=== PATIENT | male | born 1960 | race Caucasian/White ===

== ENCOUNTER → 2017-09-09 08:15 | Outpatient (CLI) | payer MEDICARE, OTHER, SELFPAY ==
--- NOTE | 2017-09-09 08:20 | XR_ITS ---
XR shoulder LT min 2V HISTORY: Follow-up fracture ITS.REASON: FOLLOW UP ORDERING PHYSICIAN: Ugo Fine MD PATIENT AGE: 57 years Comparison: 08/13/2017 FINDINGS: Avulsion fractures present involving the greater tuberosity of the humeral head. Fracture line is more prominent on today's exam may be related to hyperemic changes from early healing. IMPRESSION: Nondisplaced avulsion fracture of the humeral head with good alignment
--- NOTE | 2017-09-09 08:31 | XR_ITS ---
XR wrist RT min 3V HISTORY follow-up fracture ITS.REASON: follow up OUT OF CAST ORDERING PHYSICIAN: Ugo Fine MD PATIENT AGE: 57 years Comparison: 08/13/2017 FINDINGS: Longitudinal nondisplaced intra-articular fracture of the distal radius once again noted overall not significantly changed. There remains good alignment. Fracture line is somewhat more prominent but could be due to hyperemia from a healing. IMPRESSION: Good alignment of the nondisplaced longitudinal fracture of the distal radius with intra-articular involvement
== END ==
PROVIDERS: PCP Family Medicine; Visit Provider Orthopaedic Surgery
DX: S42.252A Displaced fracture of greater tuberosity of left humerus, initial encounter for closed fracture (principal); S62.109A Fracture of unspecified carpal bone, unspecified wrist, initial encounter for closed fracture
CPT/HCPCS: 73030; 73110

== ENCOUNTER 2017-09-09 10:04 | Outpatient (RCR) | payer MEDICARE, OTHER, SELFPAY | END 2017-09-09 11:30 | disposition home or self-care (01) | LOC: OT 10:04 | PROVIDERS: Family Provider Family Medicine; PCP Family Medicine; Visit Provider Orthopaedic Surgery | DX: S62.101A Fracture of unspecified carpal bone, right wrist, initial encounter for closed fracture (principal) | CPT/HCPCS: 97760 ==

== ENCOUNTER → 2017-10-01 08:07 | Outpatient (CLI) | payer MEDICARE, OTHER, SELFPAY ==
--- NOTE | 2017-10-01 08:16 | XR_ITS ---
XR shoulder LT min 2V HISTORY: ITS.REASON: follow up fracture ORDERING PHYSICIAN: Ugo Fine MD PATIENT AGE: 57 years Comparison: 09/09/2017 FINDINGS: Avulsion fracture of the greater tuberosity once again noted. The fracture line is less apparent and there is some mild callus formation noted laterally. Good alignment of the fracture fragments. IMPRESSION: Healing nondisplaced avulsion fracture of the greater tuberosity
--- NOTE | 2017-10-01 08:16 | XR_ITS ---
XR wrist RT min 3V HISTORY ITS.REASON: follow up wrist fracture ORDERING PHYSICIAN: Ugo Fine MD PATIENT AGE: 57 years Comparison: 09/09/2017 FINDINGS: Longitudinal fracture of the distal radius with intra-articular involvement once again noted. Fracture is nondisplaced. The fracture line is somewhat less apparent than when compared to the previous exam. There is good alignment. IMPRESSION: Good alignment nondisplaced longitudinal fracture distal radius with fracture line somewhat less apparent suggesting early healing
== END ==
PROVIDERS: PCP Family Medicine; Visit Provider Orthopaedic Surgery
DX: S42.252A Displaced fracture of greater tuberosity of left humerus, initial encounter for closed fracture (principal); S52.501A Unspecified fracture of the lower end of right radius, initial encounter for closed fracture
CPT/HCPCS: 73030; 73110

== ENCOUNTER → 2019-10-10 10:25 | Outpatient (CLI) | payer MEDICARE, OTHER, SELFPAY ==
--- NOTE | 2019-10-10 11:34 | XR_ITS ---
PROCEDURE: XR KNEE RT 3V CLINICAL INDICATION: RT KNEE PAIN COMPARISON: No exams were available for comparison FINDINGS: No fracture or dislocation. No lytic or blastic change. There is normal mineralization. Moderate osteoarthritic changes are present at the medial compartment and patellofemoral joint with mild osteoarthritis laterally. Knee joint effusion is present Other findings:None. IMPRESSION: Moderate osteoarthritic changes with knee joint effusion Dictated by: Jaison Harris MD 10/10/2019 12:19 Electronically signed by Jaison Harris MD in [place] 10/10/2019 12:19
== END ==
PROVIDERS: PCP Nurse Practitioner Family; Visit Provider Nurse Practitioner Family
DX: M25.561 Pain in right knee (principal); M25.461 Effusion, right knee
CPT/HCPCS: 73562

== ENCOUNTER 2020-08-04 12:22 | Emergency (ER) | payer MEDICARE, OTHER, SELFPAY ==
[2020-08-04 12:23] VITALS: BP 178/99; PULSE 66; RESP 18; TEMP 36.9; O2SAT 98; BMI 48.6
--- NOTE | 2020-08-04 12:55 | HMH.EDUROGM ---
ED Disposition Clinical Impression: Dysuria Disposition: Home, Self-Care Condition on Discharge: Good Instructions: DI for Urinary Tract Infection (UTI), DI for Urinary Tract Infection in Children Prescriptions: Phenazopyridine HCl 100 mg PO Q8H PRN #10 tab PRN Reason: Dysuria Transmission Status: Pending to [facility] #[id number] Referrals: PCP,No [Non-Staff] - - Critical Care Critical Care Time: No Attestation: On 08/04/20, the high probability of a clinically significant, sudden or life threatening deterioration of the following system(s) required my full and direct attention, intervention and personal management. The time I documented below is in addition to time spent performing reported procedures but includes the following listed in this critical care notation. Medical Decision Making - Medical Records Medical records reviewed: Yes: I reviewed the patient's medical records. - Norberto Inquiry Pt receiving controlled substance: No Vital Signs: 08/04/20 12:23 Temperature 98.5 F Temperature Source Oral Pulse Rate [Right Radial] 66 Respiratory Rate 18 Blood Pressure [Right Arm] 178/99 H Blood Pressure Mean [Right Arm] 125 Blood Pressure Source [Right Arm] Automatic Cuff Blood Pressure Position [Right Arm] Sitting 02 Sat by Pulse Oximetry 98 Oxygen Delivery Method Room Air - Lab Data Lab results reviewed: Yes: I reviewed the patient's lab results. Lab Results 08/04/20 12:50: Urine Color Yellow, Urine Appearance Clear, Urine pH 6.0, Ur Specific [place] 1.015, Urine Protein Negative, Urine Glucose (UA) Negative, Urine Ketones Negative, Urine Blood Negative, Urine Nitrate Negative, Urine Bilirubin Negative, Urine Urobilinogen 0.2, Ur Leukocyte Esterase Negative, Urine RBC None, Urine WBC None, Ur Squamous Epith Cells Occasional, Urine Bacteria None Male Urogenital HPI - General Chief complaint: Urogenital-Male Stated complaint: pain with urination Time Seen by Provider: 08/04/20 12:30 Mode of Arrival: EMS Limitations: No Limitations Description of Symptoms (Recalled from ER Triage Doc. by RN): Pt reports burning with urination and pain in testicle area since this morning. - History of Present Illness HPI Narrative: This is a 60-year-old male that presents with 1 week of dysuria/suprapubic pain. Pain is moderate in intensity and persistent. Patient does endorse some burning with urination. Nothing exacerbates or alleviates his symptoms. No fever or chills. No nausea vomiting or diarrhea or upper abdominal pain. - Related Data Home Medications Medication Instructions Recorded Confirmed Atorvastatin Calcium [Atorvastatin 40 mg PO DAILY 08/13/17 08/13/17 40mg Tab] Meloxicam [Mobic] 15 mg PO DAILY 08/13/17 08/13/17 aspirin 81 mg chewable tablet 81 mg PO ONCE 08/18/17 ibuprofen 800 mg tablet 800 mg PO TID 08/18/17 Previous Rx's Medication Instructions Recorded Phenazopyridine HCl 100 mg PO Q8H PRN #10 tab 08/04/20 Allergies Allergy/AdvReac Type Severity Reaction Status Date / Time INGREDIENT: NO KNOWN - NO Allergy Unknown Uncoded 08/18/17 13:17 KNOWN DRUG ALLERGY [facility] History - Hepatitis A Screen Drug use history?: No High risk sexual behaviors?: No History of sexually transmitted infection?: No Currently employed?: No Childcare worker?: No Do you have indoor plumbing?: Yes Do you have electricity?: Yes Attestation statement:: This patient has been screened for Hepatitis A risk factors. I have reviewed the patient's past medical history: Yes Laterality Cases: Bilateral: Other - Social History Smoking Status: Never smoker Alcohol Intake: never Family Hx:: No significant family history ROS Obtained: Yes All systems reviewed & no additional complaints Physical Exam - General General appearance: alert, in no apparent distress - Head Head exam: atraumatic - Eye Eye exam: Present: normal appearance, PERRL - ENT ENT e
[2020-08-04 12:57] LABS: Microscopic, Urine URINE MICROSCOPIC (MICROSCOPIC)
[2020-08-04 12:58] LABS: Appearance,Urine CLEAR (Clear); Bilirubin,Urine Negative (Negative); Blood, Urine Negative (Negative); Color,Urine YELLOW (Yellow); Glucose,Urine (UA) Negative (Negative); Ketones,Urine Negative (Negative); Leukocyte Esterase,Urine Negative (Negative); Nitrate,Urine Negative (Negative); Protein,Urine Negative (Negative); Specific Gravity, Urine 1.015 (1.005-1.030); Urobilinogen,Urine 0.2 EU/dl (0.2)
[2020-08-04 13:05] LABS: Squamous Epithelial Cell,Urine Occasional #/hpf (0-5)
[2020-08-04 13:28] VITALS: BP 178/99; PULSE 66; RESP 18; TEMP 36.9; O2SAT 98
== END 2020-08-04 13:28 | disposition home or self-care (01) ==
PROVIDERS: Emergency Provider Emergency Medicine; PCP Nurse Practitioner Family
DX: R30.0 Dysuria (principal); R10.30 Lower abdominal pain, unspecified
CPT/HCPCS: 81001; 99282

== ENCOUNTER 2021-05-07 11:04 | Emergency (ER) | payer MEDICARE, OTHER, SELFPAY ==
[2021-05-07 11:16] VITALS: BP 137/98; PULSE 85; RESP 18; O2SAT 98; BMI 31.3
--- NOTE | 2021-05-07 12:26 | XR_ITS ---
FINAL REPORT CLINICAL HISTORY: FALL FINDINGS: RIGHT ELBOW Three views demonstrate no acute fracture or dislocation. There are postoperative changes of the proximal radius and ulna. Mild degenerative changes are seen. The visualized joint spaces are normally aligned. The soft tissues are unremarkable. IMPRESSION: No acute process. Reviewed, Interpreted and Dictated by Jamal Garza III, MD Transcribed by Poonam Choi Authenticated by Jamal Garza III, MD on 05/07/2021 02:33:54 PM [facility]
--- NOTE | 2021-05-07 12:46 | HMH.EDUTC ---
[facility] [place] Disposition Clinical Impression: Elbow contusion Qualifiers: Encounter type: initial encounter Laterality: right Qualified Code(s): S50.01XA - Contusion of right elbow, initial encounter Disposition: Home, Self-Care Condition on Discharge: Good Instructions: Contusion, How To Perform RICE (Rest, Ice, Compress, Elevate) Additional Instructions: *RICE, Rest the extremity, Ice 15-20 minutes 3-4 times daily, Compress- wear the isidro wrap as discussed as much as possible to help reduce swelling and pain, Elevate the extremity when at rest *Isidro wrap is for support and help control swelling, use it except in the shower. Be sure that is not to tight but not to loose either *Elevate when resting *Ibuprofen every 6-8 hours as needed for pain an inflammation. If need something more can take Tylenol in between doses of Ibuprofen to help Immediately follow up with your family doctor for new or worsening of symptoms, or no noticeable improvement over the next 3-5 days Referrals: Elizabeth Steiner APRN [Primary Care Provider] - As needed Time of Disposition: 13:57 Medical Decision Making - Norberto Inquiry Pt receiving controlled substance: No Norberto was queried for this patient: No Vital Signs: 05/07/21 11:16 05/07/21 12:49 Temperature 98.2 F Temperature Source Oral Pulse Rate [Right Radial] 85 85 Respiratory Rate 18 18 Blood Pressure [Right Arm] 137/98 H 137/98 H Blood Pressure Mean [Right Arm] 111 111 Blood Pressure Source [Right Arm] Automatic Cuff Automatic Cuff Blood Pressure Position [Right Arm] Supine Sitting 02 Sat by Pulse Oximetry 98 98 Oxygen Delivery Method Room Air Room Air Orders (Tests/Meds): ORDERS Category Date Time Status XR elbow RT min 3V Stat Exams 05/07/21 12:26 Taken - Radiology Data #1 Image(s): Elbow Image Reviewed: Yes I reviewed the patient's radiology image w/the ED provider Old fracture with hardware, hardware appears in place, no acute fracture [facility] [place] HPI - General Stated complaint: AO 0111, right arm pain Time Seen by Provider: 05/07/21 12:46 Mode of Arrival: Ambulatory Source of Information: Patient Limitations: No Limitations Description of Symptoms (Recalled from Triage Doc. by RN): Pt stated that he was walking and he fell over a wagon and hit his right elbow. There is no pain at this time and it moving it just fine. There is a hemotoma present. - History of Present Illness Provider Complaint: Patient states that he tripped over a wagon and fell State that he now has a bruise on just above his elbow State that he doesnt think it is broke he can move it ok but had previous surgery on this elbow and wanted to get it checked - Related Data Home Medications Medication Instructions Recorded Confirmed Atorvastatin Calcium [Atorvastatin 40 mg PO DAILY 08/13/17 08/13/17 40mg Tab] Meloxicam [Mobic] 15 mg PO DAILY 08/13/17 08/13/17 aspirin 81 mg chewable tablet 81 mg PO ONCE 08/18/17 ibuprofen 800 mg tablet 800 mg PO TID 08/18/17 Previous Rx's Medication Instructions Recorded Phenazopyridine HCl 100 mg PO Q8H PRN #10 tab 08/04/20 Allergies Allergy/AdvReac Type Severity Reaction Status Date / Time INGREDIENT: NO KNOWN - NO Allergy Unknown Uncoded 08/18/17 13:17 KNOWN DRUG ALLERGY [facility] History - Hepatitis A Screen Attestation statement:: This patient has been screened for Hepatitis A risk factors. I have reviewed the patient's past medical history: Yes Laterality Cases: Bilateral: Other - Social History Smoking Status: Never smoker Alcohol Intake: never Family Hx:: No significant family history ROS Obtained: Yes All systems reviewed & no additional complaints, Yes Systems reviewed as appropriate & no additional complaints - Constitutional Constitutional: Reports system reviewed and no additional complaints, except as docu, Denies body ache, Denies chills, Denies fever(s) - ENT Ears, Nose, Mouth, and Throat: Reports system revi
[2021-05-07 12:49] VITALS: BP 137/98; PULSE 85; RESP 18; TEMP 36.8; O2SAT 98; BMI 31.4
[2021-05-07 14:01] VITALS: BP 137/98; PULSE 85; RESP 18; TEMP 36.8; O2SAT 98
== END 2021-05-07 14:03 | disposition home or self-care (01) ==
LOC: ER 11:19 → UTC 11:19
PROVIDERS: Emergency Provider Nurse Practitioner; PCP Nurse Practitioner Family
DX: S50.01XA Contusion of right elbow, initial encounter (principal); W01.0XXA Fall on same level from slipping, tripping and stumbling without subsequent striking against object, initial encounter; Y92.019 Unspecified place in single-family (private) house as the place of occurrence of the external cause
CPT/HCPCS: 73080; 99202; G0463

== ENCOUNTER → 2023-02-12 11:27 | Outpatient (CLI) | payer MEDICARE, OTHER, SELFPAY ==
--- NOTE | 2023-02-12 11:34 | XR_ITS ---
FINAL REPORT CLINICAL HISTORY: ACUTE PAIN fall last week limited rom FINDINGS: LEFT SHOULDER 3 views of the left shoulder were obtained. There is no acute fracture or dislocation. Visualized joint spaces are normally aligned. There is mild AC joint arthrosis. Soft tissues are unremarkable. IMPRESSION: No acute bony abnormality. Reviewed, Interpreted and Dictated by Jamal Garza III, MD Transcribed by Poonam Choi Authenticated and [facility]
== END ==
PROVIDERS: PCP Family Medicine; Visit Provider Nurse Practitioner Family
DX: M25.512 Pain in left shoulder (principal)
CPT/HCPCS: 73030